=== PATIENT | male | born 1980 | race African-American/Black ===

== ENCOUNTER 2022-05-04 12:04 | Emergency (ER) | payer BC ==
[~2022-05-04] VITALS: Ht 177.8 cm; Wt 100.0 kg
[2022-05-04] MEDS ORDERED: TETANUS, DIPHTHERIA, PERTUSSIS VAC/PF 0.5ML (>10YR OLD) IM ONE ×2 (12:45→16:00)
[2022-05-04] MEDS ORDERED: BACITRACIN ZINC OINT UDPKT TOP ONE (12:45)
[2022-05-04] MEDS ORDERED: LIDOCAINE HCL/PF 1% 10 MG/ML 5ML VIAL INFIL ONE (12:45)
[2022-05-04] MEDS ORDERED: IBUPROFEN 400MG TABLET PO ONE (13:00)
[2022-05-04] MEDS ORDERED: BACITRACIN ZINC OINT UDPKT TOP NR (15:30)
[2022-05-04] MEDS ORDERED: LIDOCAINE HCL/PF 1% 10 MG/ML 5ML VIAL INFIL NR (15:30)
[2022-05-04] MEDS ORDERED: IBUPROFEN 400MG TABLET PO NR (15:30)
[2022-05-04 16:40] VITALS: BP 125/75
== END 2022-05-04 16:41 | disposition home or self-care (01) ==
LOC: ER 12:16
DX: S61.012A Laceration without foreign body of left thumb without damage to nail, initial encounter (principal); S61.412A Laceration without foreign body of left hand, initial encounter; I10 Essential (primary) hypertension; E11.9 Type 2 diabetes mellitus without complications; W26.0XXA Contact with knife, initial encounter; Y93.89 Activity, other specified; Y92.89 Other specified places as the place of occurrence of the external cause; F17.210 Nicotine dependence, cigarettes, uncomplicated; Z71.6 Tobacco abuse counseling
CPT/HCPCS: 12002; 90471; 90715; 99283; J3490

== ENCOUNTER 2022-06-20 06:55 | Emergency (ER) | payer BC, MEDICAID ==
[~2022-06-20] VITALS: Ht 167.6 cm; Wt 85.4 kg
[2022-06-20 07:14] VITALS: BP 161/107
[2022-06-20] MEDS ORDERED: ACETAMINOPHEN 325MG TABLET PO ONE (07:45)
[2022-06-20] MEDS ORDERED: TOPUD PO (08:49)
== END 2022-06-20 08:56 | disposition home or self-care (01) ==
LOC: ER 07:18
DX: M54.2 Cervicalgia (principal); R20.0 Anesthesia of skin; E11.9 Type 2 diabetes mellitus without complications
CPT/HCPCS: 99284

== ENCOUNTER 2022-06-28 12:00 | Emergency (ER) | payer BC, MEDICAID ==
[~2022-06-28] VITALS: Ht 167.6 cm; Wt 73.0 kg
[~2022-06-28 12:00] MED LIST: TOPUD PO
[2022-06-28] MEDS ORDERED: HYDROCODONE/ACETAMINOPHEN 5/325MG TABLET PO ONE (15:30)
[2022-06-28] MEDS ORDERED: LIDOCAINE HCL/PF 1% 10 MG/ML 5ML VIAL INFIL ONE (16:30)
[2022-06-28 17:14] VITALS: BP 155/100
[2022-06-28] MEDS ORDERED: HYDROCODONE/ACETAMINOPHEN 5/325MG TABLET PO NR (17:15)
[2022-06-28] MEDS ORDERED: HYDR-4001 MT (18:04)
== END 2022-06-28 18:21 | disposition home or self-care (01) ==
LOC: ER 12:00
DX: S62.337A Displaced fracture of neck of fifth metacarpal bone, left hand, initial encounter for closed fracture (principal); I10 Essential (primary) hypertension; E11.9 Type 2 diabetes mellitus without complications; Z88.0 Allergy status to penicillin; Z98.890 Other specified postprocedural states; X58.XXXA Exposure to other specified factors, initial encounter; Y93.89 Activity, other specified; Y92.89 Other specified places as the place of occurrence of the external cause; Y99.8 Other external cause status
CPT/HCPCS: 26605; 73130; 99152; 99285; J3490; Z7610; A4565

== ENCOUNTER 2022-07-14 07:59 | Emergency (ER) | payer MEDICAID ==
[~2022-07-14] VITALS: Ht 167.6 cm; Wt 74.0 kg
[~2022-07-14 07:59] MED LIST changes: +HYDR-4001 MT
[2022-07-14 08:00] VITALS: BP 175/103
[2022-07-14] MEDS ORDERED: IBUPROFEN 600MG TABLET PO ONE (11:00)
[2022-07-14 13:25] LABS: CHLORIDE 106 mEq/L (98-107)
[2022-07-14 13:59] LABS: CLARITY URINE CLEAR (CLEAR); COLOR URINE YELLOW (YELLOW); KETONES URINE NEGATIVE (NEGATIVE); LEUKOCYTE ESTERASE URINE NEGATIVE (NEGATIVE); NITRITE URINE NEGATIVE (NEGATIVE); OCCULT BLOOD URINE NEGATIVE (NEGATIVE); PH URINE 8.5 (4.5-8.0); PROTEIN URINE NEGATIVE (NEGATIVE); SPECIFIC GRAVITY URINE 1.014 (1.005-1.030); UROBILINOGEN URINE 0.2 E.U./dL (0.2-1.0)
[2022-07-14] MEDS ORDERED: HYDR12.54 MT (14:14)
[2022-07-14] MEDS ORDERED: AMLO5TAB88 MT (14:19)
== END 2022-07-14 14:36 | disposition home or self-care (01) ==
LOC: ER 07:59
DX: S62.337A Displaced fracture of neck of fifth metacarpal bone, left hand, initial encounter for closed fracture (principal); X58.XXXA Exposure to other specified factors, initial encounter; Y93.89 Activity, other specified; Y92.89 Other specified places as the place of occurrence of the external cause; Y99.8 Other external cause status; E11.9 Type 2 diabetes mellitus without complications; I10 Essential (primary) hypertension
CPT/HCPCS: 36415; 73110; 73130; 80048; 81003; 99284

== ENCOUNTER 2022-11-10 15:27 | Emergency (ER) | payer MEDICAID ==
[~2022-11-10] VITALS: Ht 167.6 cm; Wt 84.0 kg
[~2022-11-10 15:27] MED LIST changes: +AMLO5TAB88 MT
[2022-11-10] MEDS ORDERED: FLUORESCEIN SODIUM 1MG/STRIP BOTHEYE ONE (18:30)
[2022-11-10] MEDS ORDERED: TETRACAINE 0.5% OPHTH DROPS 4ML BOTHEYE ONE (18:30)
[2022-11-10] MEDS ORDERED: IBUP-2029 MT (19:03)
[2022-11-10] MEDS ORDERED: IBUPROFEN 600MG TABLET PO ONE (19:15)
[2022-11-10 19:34] VITALS: BP 179/104
== END 2022-11-10 19:38 | disposition home or self-care (01) ==
LOC: ER 15:39
DX: H16.9 Unspecified keratitis (principal); H57.13 Ocular pain, bilateral; E11.9 Type 2 diabetes mellitus without complications; I10 Essential (primary) hypertension; Z88.0 Allergy status to penicillin; Z79.899 Other long term (current) drug therapy
CPT/HCPCS: 99283; Z7610

== ENCOUNTER 2024-02-04 17:46 | Emergency (ER) | payer MEDICAID ==
[~2024-02-04] VITALS: Ht 167.6 cm; Wt 106.0 kg
[~2024-02-04 17:46] MED LIST changes: +IBUP-2029 MT
[2024-02-04 17:58] VITALS: BP 154/99; PULSE 100; RESP 16; TEMP 98.7; O2SAT 99
[2024-02-04] MEDS ORDERED: DEXAMETHASONE 0.5MG/5ML ORAL SYR PO ONE (18:45)
[2024-02-04] MEDS: KETOROLAC 60MG/2ML VIAL IM ONE (19:01)
[2024-02-04] MEDS: DEXAMETHASONE 10 MG/ML VIAL PO NR (19:01)
[2024-02-04] MEDS ORDERED: IBUP-2028 MT (20:37)
== END 2024-02-04 21:03 | disposition home or self-care (01) ==
LOC: ER 17:46
DX: J02.9 Acute pharyngitis, unspecified (principal); H92.01 Otalgia, right ear; E11.9 Type 2 diabetes mellitus without complications; I10 Essential (primary) hypertension
CPT/HCPCS: 87430; 87070; 96372; 99283; J1100; J1885; Z7610; J8540

== ENCOUNTER 2024-02-06 04:53 | Emergency (ER) | payer MEDICAID ==
[~2024-02-06] VITALS: Ht 167.6 cm; Wt 106.0 kg
[~2024-02-06 04:53] MED LIST changes: +IBUP-2028 MT
[2024-02-06 05:02] VITALS: O2SAT 99
[2024-02-06] MEDS ORDERED: CLINDAMYCIN 600 MG in DEXTROSE 5% WATER 50 ML IV ONE (05:45)
[2024-02-06] MEDS: DEXAMETHASONE 10 MG/ML VIAL IV ONE (06:08)
[2024-02-06] MEDS: KETOROLAC 30MG/ML VIAL IV STA (06:09)
[2024-02-06] MEDS: SODIUM CHLORIDE 0.9% 1,000 ML IV ONE (06:17)
[2024-02-06 06:24] LABS: BASOPHILS % 1.2 % (0.0-2.0); EOSINOPHILS % 1.5 % (0.0-5.0); HEMATOCRIT. 38.6 % (42.0-52.0); HEMOGLOBIN. 12.3 g/dL (14.0-18.0); LYMPHOCYTES % 31.6 % (20.0-50.0); MEAN CORPUSCULAR HEMOGLOBIN 20.9 pg (28.0-32.0); MEAN CORPUSCULAR HGB CONC 31.8 g/dL (31.0-37.0); MEAN CORPUSCULAR VOLUME 65.9 fL (80.0-94.0); MEAN PLATELET VOLUME 9.1 fl (7.4-10.4); MONOCYTES % 8.3 % (2.0-8.0); NEUTROPHILS % 57.4 % (40.0-76.0); PLATELET 321 x1000/uL (130-400); RED BLOOD CELL COUNT 5.85 mill/uL (4.7-6.1); RED CELL DISTRIBUTION WIDTH 16.3 % (11.6-14.6); WHITE BLOOD COUNT 12.5 x1000/uL (4.5-11.0)
[2024-02-06 06:28] LABS: DIFFERENTIAL COMMENT 1
[2024-02-06 06:29] LABS: ADD RBC MORPHOLOGY YES
[2024-02-06 06:37] LABS: CARBON DIOXIDE 25 mEq/L (21-32); CHLORIDE 100 mEq/L (98-107); SODIUM 131 mEq/L (136-145)
[2024-02-06 06:38] LABS: CALCIUM 9.8 mg/dL (8.7-10.4)
[2024-02-06] MEDS: CLINDAMYCIN 600MG PREMIX 50 ML IV NR (06:42)
[2024-02-06 06:43] LABS: CREATININE 1.1 mg/dL (0.6-1.3); UREA NITROGEN BLOOD 14 mg/dL (9-23)
[2024-02-06 06:44] LABS: ALANINE AMINOTRANSFERASE 16 IU/L (10-49); ASPARTATE AMINOTRANSFERASE 13 IU/L (<34)
[2024-02-06 06:45] LABS: ALBUMIN 4.5 g/dL (3.2-4.8); BILIRUBIN TOTAL 0.2 mg/dL (0.1-1.0); PROTEIN TOTAL 7.8 g/dL (6.0-8.3)
[2024-02-06 06:54] LABS: GLUCOSE 396 mg/dL (70-105)
[2024-02-06] MEDS ORDERED: IBUP-2028 MT (07:47)
[2024-02-06] MEDS ORDERED: CLIN-194 MT (07:47)
[2024-02-06 08:26] LABS: HYPOCHROMASIA 1+; MICROCYTOSIS 2+; PLATELET ESTIMATE NORMAL
[2024-02-06] MEDS: INSULIN REGULAR (HUMULIN R) 300UNITS/3ML VIAL SUBCUT NR (08:34)
[2024-02-06 08:47] VITALS: BP 148/94; PULSE 87; RESP 14; TEMP 98.6
== END 2024-02-06 08:35 | disposition home or self-care (01) ==
LOC: ER 04:53
DX: J36 Peritonsillar abscess (principal); E11.9 Type 2 diabetes mellitus without complications; I10 Essential (primary) hypertension
CPT/HCPCS: 80053; 85025; 36415; 96365; 96372; 96375; 99284; J3490 ×2; J1100; J1815; J1885; J7060; J7030; Z7610 ×2

== ENCOUNTER 2024-02-07 14:39 | Emergency (ER) | payer MEDICAID ==
[~2024-02-07] VITALS: Ht 167.6 cm; Wt 106.0 kg
[~2024-02-07 14:39] MED LIST changes: +CLIN-194 MT
[2024-02-07 14:45] VITALS: O2SAT 100
[2024-02-07 15:56] LABS: ADD RBC MORPHOLOGY YES; BASOPHILS % 1.3 % (0.0-2.0); DIFFERENTIAL COMMENT 1; EOSINOPHILS % 0.9 % (0.0-5.0); HEMATOCRIT. 39.1 % (42.0-52.0); HEMOGLOBIN. 12.5 g/dL (14.0-18.0); MEAN CORPUSCULAR HEMOGLOBIN 21.1 pg (28.0-32.0); MEAN CORPUSCULAR VOLUME 65.8 fL (80.0-94.0); MEAN PLATELET VOLUME 8.6 fl (7.4-10.4); MONOCYTES % 9.1 % (2.0-8.0); NEUTROPHILS % 67.7 % (40.0-76.0); PLATELET 326 x1000/uL (130-400); RED BLOOD CELL COUNT 5.94 mill/uL (4.7-6.1); RED CELL DISTRIBUTION WIDTH 16.5 % (11.6-14.6); WHITE BLOOD COUNT 14.9 x1000/uL (4.5-11.0)
[2024-02-07 16:01] LABS: CHLORIDE 99 mEq/L (98-107); POTASSIUM 5.1 mEq/L (3.5-5.1); SODIUM 131 mEq/L (136-145)
[2024-02-07 16:02] LABS: CARBON DIOXIDE 25 mEq/L (21-32)
[2024-02-07 16:05] LABS: INR 0.9
[2024-02-07 16:07] LABS: GLUCOSE 317 mg/dL (70-105)
[2024-02-07 16:08] LABS: UREA NITROGEN BLOOD 8 mg/dL (9-23)
[2024-02-07 16:09] LABS: ALANINE AMINOTRANSFERASE 12 IU/L (10-49); ALBUMIN 4.3 g/dL (3.2-4.8); ASPARTATE AMINOTRANSFERASE 11 IU/L (<34)
[2024-02-07] MEDS: KETOROLAC 30MG/ML VIAL IV STA (16:09)
[2024-02-07] MEDS: DEXAMETHASONE 10 MG/ML VIAL IV ONE (16:09)
[2024-02-07] MEDS: SODIUM CHLORIDE 0.9% 1,000 ML IV ONE (16:09)
[2024-02-07 16:10] LABS: BILIRUBIN TOTAL 0.3 mg/dL (0.1-1.0); HYPOCHROMASIA 2+; MICROCYTOSIS 3+; PLATELET ESTIMATE NORMAL; PROTEIN TOTAL 7.4 g/dL (6.0-8.3)
[2024-02-07 16:25] LABS: CALCIUM 10.3 mg/dL (8.7-10.4)
[2024-02-07] MEDS ORDERED: INSULIN REGULAR (HUMULIN R) 300UNITS/3ML VIAL SUBCUT NR (17:15)
[2024-02-07] MEDS: PIPERACILLIN/TAZO 3.375G/50ML 50 ML IV SCH (21:29)
[2024-02-07] MEDS ORDERED: IOHEXOL-300 100 ML BOTTLE ONE (23:12)
[2024-02-08 04:06] VITALS: BP 124/79; PULSE 96; RESP 19; TEMP 98.9
== END 2024-02-08 04:28 | disposition left against medical advice (07) ==
LOC: ER 14:52 → EDBEDREQ 16:39 → ER 02-08 04:28
DX: J36 Peritonsillar abscess (principal); E11.65 Type 2 diabetes mellitus with hyperglycemia; I10 Essential (primary) hypertension; Z79.899 Other long term (current) drug therapy
CPT/HCPCS: 80053; 82962; 85025; 85610; 86850; 86900; 86901; 36415; 70491; 96361; 96365; 96375; 99291; Q9967; J1100; J1815; J1885; J2543; J7030; Z7610 ×3